=== PATIENT | female | born 1975 | race Caucasian/White ===

== ENCOUNTER 2020-01-22 19:57 | Emergency (ER) | payer SELFPAY ==
[2020-01-22 20:11] VITALS: BP 151/86; PULSE 94; RESP 16; TEMP 37.1; O2SAT 99
--- NOTE | 2020-01-22 21:02 | ED.DENTAL ---
HPI - Dental/Oral General Chief complaint: Dental/Oral <Nikki Alex PA-C - Last Filed: 01/22/20 21:13> Stated complaint: dental pain <SONIDO Royal Last Filed: 01/22/20 21:13> Time Seen by Provider: 01/22/20 20:16 <Nikki Alex PA-C - Last Filed: 01/22/20 21:13> Source: patient <SONIDO Royal Last Filed: 01/22/20 21:13> Mode of arrival: ambulatory <SONIDO Royal Last Filed: 01/22/20 21:13> Limitations: no limitations <SONIDO Royal Last Filed: 01/22/20 21:13> History of Present Illness HPI Narrative: This is a 44-year-old female that presents the emergency department for toothache x2 weeks. Reports 2 lower teeth on the left that have been painful. Reports she has been taking [id number] medication with little relief. Reports she has been unable to see a dentist. Denies fever, erythema or edema. <Nikki Alex PA-C - Last Filed: 01/22/20 21:13> Related Data Allergies/adverse reactions: Allergies Allergy/AdvReac Type Severity Reaction Status Date / Time Penicillins Allergy Unknown Verified 01/22/20 21:02 <Nikki Alex PA-C - Last Filed: 01/22/20 21:13> Review of Systems Review of Systems: Narrative: CONSTITUTIONAL: Reports fever ENT: Reports dentalgia <Nikki Alex PA-C - Last Filed: 01/22/20 21:13> All systems reviewed & are unremarkable except as noted in HPI and below <SONIDO Royal Last Filed: 01/22/20 21:13> [facility] Past Medical History Medical History: Medical History (Updated 01/23/20 @ 00:00 by Jeb Gordon) No active medical problems <SONIDO Royal Last Filed: 01/22/20 21:13> Social History Social History: Social History (Updated 01/22/20 @ 21:06 by Nikki Alex PA-C) Substance use: never <Nikki Alex PA-C - Last Filed: 01/22/20 21:13> Exam Narrative: Exam Narrative: GENERAL: Well-appearing, well-nourished, and in no acute distress. HEAD: Normocephalic, atraumatic. EYES: EOMI. ENT: Mucous membranes moist. Oropharynx without tonsillar hypertrophy exudate or other lesions. Poor dentition. Tooth #18 and 19 cracked, tender to palpation without surrounding edema or erythema to suggest abscess. No trismus NECK: Supple. No adenopathy or masses. CHEST: Airway patent EXTREMITIES: Normal range of motion. No edema. SKIN: Warm, dry, no rash. NEURO: No focal deficits. Alert and oriented x3. PSYCH: Normal mood and affect <Nikki Alex PA-C - Last Filed: 01/22/20 21:13> Course Vital Signs Vital signs: Vital Signs Temperature 37.1 C 01/22/20 20:11 Pulse Rate 94 01/22/20 20:11 Respiratory Rate 16 01/22/20 20:11 Blood Pressure 151/86 H 01/22/20 20:11 Pulse Oximetry 99 01/22/20 20:11 Temperature 37.1 C 01/22/20 20:11 Pulse Rate 94 01/22/20 20:11 Respiratory Rate 16 01/22/20 20:11 Blood Pressure 151/86 H 01/22/20 20:11 Pulse Oximetry 99 01/22/20 20:11 <Nikki Alex PA-C - Last Filed: 01/22/20 21:13> Vital Signs Temperature 37.1 C 01/22/20 20:11 Pulse Rate 94 01/22/20 20:11 Respiratory Rate 16 01/22/20 20:11 Blood Pressure 151/86 H 01/22/20 20:11 Pulse Oximetry 99 01/22/20 20:11 Temperature 37.1 C 01/22/20 20:11 Pulse Rate 94 01/22/20 20:11 Respiratory Rate 16 01/22/20 20:11 Blood Pressure 151/86 H 01/22/20 20:11 Pulse Oximetry 99 01/22/20 20:11 <Ronak Head MD - Last Filed: 01/23/20 06:06> MDM - Dental/Oral MDM Narrative Medical decision making narrative: Patient presents the emergency department for toothache x2 weeks. She is afebrile and nontoxic-appearing. No evidence of abscess on exam. No trismus. Patient will be started on oral antibiotics. She is instructed to follow-up with a dentist. She was given warnings to return to the ER <Nikki Alex PA-C - Last Filed: 01/22/20 21:13> Critical Care Time Critical Care Time
[2020-01-22] MEDS: FLUCONAZOLE 150 MG TABLET PO (21:12)
[2020-01-22] MEDS: CLINDAMYCIN HCL 150 MG CAP 450 MG PO (21:13)
== END 2020-01-22 21:25 | disposition home or self-care (01) ==
PROVIDERS: Emergency Provider Emergency Medicine
DX: K08.89 Other specified disorders of teeth and supporting structures (principal)
CPT/HCPCS: 99283; A9270